=== PATIENT | female | born 1985 | race Caucasian/White ===

== ENCOUNTER 2016-10-28 14:42 | Emergency (ER) | payer OTHER, BC ==
[~2016-10-28] VITALS: Ht 161.3 cm; Wt 84.0 kg
[~2016-10-28 14:42] MED LIST: MTR600X PO; OXYC5TAB PO; PRENTAB26 PO
[2016-10-28 14:48] VITALS: TEMP 37.2; Ht 161.3 cm; Wt 84.0 kg
[2016-10-28] MEDS ORDERED: AMOX500C3 PO (14:57)
[2016-10-28] MEDS ORDERED: BCPILLS PO (14:57)
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
[2016-10-28 17:15] VITALS: BP 169/104; PULSE 92; O2SAT 100
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
== END 2016-10-28 17:17 | disposition home or self-care (01) ==
LOC: EDBD 14:42 → C.EDA 14:43
DX: G44.319 Acute post-traumatic headache, not intractable (principal); S16.1XXA Strain of muscle, fascia and tendon at neck level, initial encounter; S00.01XA Abrasion of scalp, initial encounter; V43.53XA Car driver injured in collision with pick-up truck in traffic accident, initial encounter; Z83.3 Family history of diabetes mellitus; Z82.49 Family history of ischemic heart disease and other diseases of the circulatory system; Z79.3 Long term (current) use of hormonal contraceptives

== ENCOUNTER 2018-08-31 10:34 | Inpatient (IN) ==
[2018-08-31] MEDS: LACTATED RINGER'S 1,000 ML IV SCH ×3 (11:40→16:25)
[2018-08-31] MEDS ORDERED: PENICILLIN G POTASSIUM 3 MU in DEXTROSE 5% 100 ML IV PRN (11:42)
[2018-08-31] MEDS ORDERED: OXYTOCIN 30 UNITS/500 ML BAG IV PRN ×3 (11:42→19:20)
[2018-08-31] MEDS ORDERED: LACTATED RINGER'S 1,000 ML IV PRN ×3 (11:42→16:07)
[2018-08-31] MEDS ORDERED: PENICILLIN G POTASSIUM 6 MU in DEXTROSE 5% 250 ML IV ONE (12:00)
[2018-08-31 12:05] LABS: Hemoglobin 12.2 g/dL (12.0-16.0); Mean Corpuscular Volume 85.9 fL (80-100); Mean Platelet Volume 9.9 fL (7.4-10.4); Platelet Count 213 K/uL (130-400); RDW Coefficient of Variation 13.1 % (11.5-14.5); RDW Standard Deviation 41.1 fL (36.4-46.3); Red Blood Count 4.19 M/uL (4.2-5.4); White Blood Count 9.93 K/uL (4.8-10.8)
[2018-08-31 12:17] LABS: Mean Corpuscular Hgb Conc 33.9 g/dL (32-36)
--- NOTE | 2018-08-31 12:32 | Labor Progress Brief Note ---
Date of Service August 31, 2018 Met Pt and reviewed PNC SROM confirmed via ferning and Nitrizine FHR; CAT1 Ctx ; minimal VE 3cm/50/-2 Pt is interested in discussed risk of uterine rapture, and maternal complications associated with , including but not limited to neurological damage but also . we have discussed the increase risk of uterine rapture if we have to start pitocin augmentation, which we may have to if she does not have spontaneous ctx on her own Pt has nodded her head in agreement and wishes to proceed with TOLAC Physical Exam 2 Vital Signs (Past 24 Hours): Last Vital Signs Temp 36.7 C 08/31/18 10:43 Pulse 109 H 08/31/18 10:47 Resp 18 08/31/18 10:43 BP 129/87 08/31/18 10:47
--- NOTE | 2018-08-31 12:51 | History and Physical Report ---
DATE OF ADMISSION: 08/31/2018 HISTORY OF PRESENT ILLNESS: The patient is a 32-year-old G4, P2, due date is 09/25/2018 making at 36 weeks and 3 days, who presented to labor and delivery with spontaneous rupture of membrane around 0900 hours today. Fluid was clear. This was confirmed by Nitrazine and ferning. The patient also had gross pooling on arrival. heart rate is category 1. Pelvic exam shows she is 3 cm, 50% effaced, and -1. Bedside ultrasound shows cephalic presentation. COURSE: Has been unremarkable. Blood type is A positive, antibody negative, rubella immune, GBS negative. PAST MEDICAL HISTORY: The patient had history of heterozygous for MTHFR gene mutation. PAST SURGICAL HISTORY: The patient had a section in March 2016 for breech presentation. Prior to that, she had a vaginal delivery in 2005. ALLERGIES: No known drug allergies. SOCIAL HISTORY: The patient denies tobacco, drug or alcohol use. PHYSICAL EXAMINATION: GENERAL: Well-developed, well-nourished white female in no acute distress. HEART: S1, S2, regular rhythm and rate. LUNGS: Clear to auscultation bilaterally. ABDOMEN: Gravid. Bedside ultrasound shows cephalic presentation. The patient was about 3 cm dilated. EXTREMITIES: No cyanosis, clubbing, edema. ASSESSMENT AND PLAN: A 32-year-old G4, P2 at 36 and 3, premature rupture of membranes. The patient has previous section and wishes to do a . We have discussed risks of including uterine rupture. We have discussed risks associated with infant including neurologic complications and to mother or to baby. The patient wishes to proceed with a trial of labor after . The patient is being admitted and anticipate the vaginal delivery.
--- NOTE | 2018-08-31 14:03 | Labor Progress Brief Note ---
Date of Service August 31, 2018 Pt doing well No ctx since admission No change in cervical exam discussed pitocin augmentation with risk of uterine rupture EFW 6-7lbs Plan Pitocin augmentation Physical Exam 2 Vital Signs (Past 24 Hours): Last Vital Signs Temp 37.1 C 08/31/18 12:59 Pulse 88 08/31/18 12:59 Resp 18 08/31/18 12:59 BP 115/74 08/31/18 12:59
[2018-08-31] MEDS ORDERED: BUPIVACAINE 0.25% 30 ML VIAL ONE (15:35)
[2018-08-31] MEDS ORDERED: ePHEDrine sulfate 50 MG/ML AMP ONE (15:36)
[2018-08-31] MEDS ORDERED: fentaNYL citrate 100 MCG/2 ML VIAL ONE (15:36)
[2018-08-31] MEDS ORDERED: fentaNYL 2MCG/ML ROPIV 1.25MG/ML 100 ML BAG EPI ONE (15:36)
--- NOTE | 2018-08-31 15:51 | Anesthesiology Consultation ---
Date of Service August 31, 2018 Assessment & Plan (1) Encounter for pre-operative examination: Chart Review Chart Review: Patient NOT seen in Pre Admission Testing and Acceptable Risk for Labor Epidural Consults Requested none ASA ASA2 Proposed Anesthesia Anesthesia Type: Labor Epidural and CSE Risk / Benefits Reviewed With: PT / POA / Parent / Guardian, Accepts Plan and Informed Consent Obtained NPO Date Last Intake of Fluids: 08/31/18 Time Last Intake of Fluids: 14:00 Date Last Intake of Solids: 08/31/18 Time Last Intake of Solids: 08:30 History Height/Weight Height: 5 ft 3 in Weight: 90.265 kg Allergies Allergy/AdvReac Type Severity Reaction Status Date / Time No Known Allergies Allergy Unverified 10/28/16 14:56 Medications Home Medications Medication Instructions Recorded Confirmed Last Taken vit-iron fum-folic ac PO 08/31/18 08/30/18 [ Vitamin] Active Medications Generic Name Dose Route Start Last Admin Trade Name Freq PRN Reason Stop Dose Admin Lactated Ringer's 1,000 mls @ 125 mls/hr 08/31/18 11:45 08/31/18 15:22 Lr IV 09/02/18 11:44 999 mls/hr .Q8H CHIP Administration Oxytocin 30 units in 500 mls @ 2 mls/hr 08/31/18 14:00 08/31/18 15:19 Pitocin IV 09/02/18 13:59 0.12 units/hr .Q24H PRN 2 mls/hr Labor Induction/Augmentation Titration Protocol 0.12 UNITS/HR Past Surgical History Surgical History History of delivery [place] teeth extracted Past Anesthesia History No Family Hx of Anesthesia Complications patient had nausea with C section History of PONV Yes Motion Sickness Screening History of Motion Sickness: No Social History Smoking Status: Former smoker Do You Dip or Chew Tobacco: No Hx Alcohol Use: No Hx Substance Use: No Exercise / Class Metabolic Activity II 4-5 Yardwork/Stairs/Walk up hill Review of Systems no chest pain or sob Physical Exam Vital Signs Last Vital Signs Temp 37.1 C 08/31/18 14:50 Pulse 101 H 08/31/18 15:49 Resp 18 08/31/18 14:50 BP 126/85 08/31/18 14:50 Pulse Ox 100 08/31/18 15:49 Constitutional + obese ENMT Mouth: + dental caries Neck normal visual inspection Respiratory normal respiratory effort Cardiovascular Rate/Rhythm: regular rate and regular rhythm Musculoskeletal Spine: no pain with cervical ROM Neurologic moves all extremities Psychiatric Orientation: alert and oriented x 3 Testing Laboratory Results 08/31/18 11:51 Blood Type A Positive 08/31/18 11:51 Antibody Screen NEGATIVE 08/31/18 11:51
[2018-08-31] MEDS ORDERED: ONDANSETRON INJ 2 MG/ML 2 ML VIAL IV PRN (16:07)
[2018-08-31] MEDS ORDERED: fentaNYL 2MCG/ML ROPIV 1.25MG/ML 100 ML BAG EPI PRN (16:07)
[2018-08-31] MEDS ORDERED: NALBUPHINE HCL INJ 10 MG/ML AMP IV PRN (16:07)
[2018-08-31] MEDS ORDERED: DiphenhydrAMINE HCL 50 MG/ML VIAL IV PRN (16:07)
[2018-08-31] MEDS ORDERED: ePHEDrine sulfate 50 MG/ML AMP IV PRN (16:07)
[2018-08-31] MEDS ORDERED: NALOXONE HCL 0.4 MG/1 ML VIAL/CARP IV PRN (16:07)
[2018-08-31] MEDS ORDERED: NALOXONE HCL 1 MG in SODIUM CHLORIDE 0.9% 1000ML 1,000 ML IV PRN (16:07)
[2018-08-31] MEDS ORDERED: METHYLERGONOVINE MALEATE 0.2 MG/ML AMP ONE (19:10)
[2018-08-31] MEDS ORDERED: ACETAMINOPHEN 325 MG TAB PO PRN (19:20)
[2018-08-31] MEDS ORDERED: ACETAMINOPHEN W/CODEINE #3 1 TAB PO PRN (19:20)
[2018-08-31] MEDS ORDERED: OXYCODONE/ACETAMINOPHEN 5mg/325mg TAB PO PRN (19:20)
[2018-08-31] MEDS ORDERED: SUPERCREAM 0.870% 15 GM JAR EXT PRN (19:20)
[2018-08-31] MEDS ORDERED: BISACODYL 10 MG SUPP PR PRN (19:20)
[2018-08-31] MEDS ORDERED: METHYLERGONOVINE MALEATE 0.2 MG/ML AMP IM ONE (19:20)
[2018-08-31] MEDS ORDERED: HYDROCORTISONE ACETATE 25 MG SUPP PR PRN (19:20)
[2018-08-31] MEDS ORDERED: miSOPROStol 200 MCG TAB PR ONE (19:20)
[2018-08-31] MEDS ORDERED: BENZOCAINE 20% AER SPR 82.5 GM CAN EXT PRN (19:20)
[2018-08-31] MEDS ORDERED: DIPHTHERIA/TETANUS/PERTUSSIS 0.5 ML SYR/VIAL IM ONE (19:20)
[2018-08-31] MEDS ORDERED: KEFZOL SPECIAL PROCEDURE STOCK 1 GM ADDVIAL IV ONE (19:23)
[2018-08-31] MEDS ORDERED: miSOPROStol 200 MCG TAB ONE (19:23)
[2018-08-31] MEDS ORDERED: CEFAZOLIN 2000MG 2,000 MG/15 ML SYR IV ONE (20:00)
[2018-08-31] MEDS: OXYTOCIN 20 UNITS in LACTATED RINGER'S 1,000 ML IV SCH (20:05)
--- NOTE | 2018-08-31 20:18 | Anesthesia Procedure Note ---
Date of Service August 31, 2018 Anesthesia Post Epidural Note Vital Signs Vital Signs: Temp Pulse Resp BP Pulse Ox 08/31/18 20:05 109 H 119/89 08/31/18 19:51 108 H 121/88 08/31/18 19:35 110 H 119/87 08/31/18 19:20 114 H 118/71 08/31/18 19:12 105 H 122/69 08/31/18 19:04 109 H 99 08/31/18 18:59 113 H 100 08/31/18 18:57 102 H 111/70 08/31/18 18:54 109 H 99 08/31/18 18:49 117 H 99 08/31/18 18:44 114 H 100 08/31/18 18:42 88 104/49 L 08/31/18 18:39 127 H 100 08/31/18 18:34 125 H 100 08/31/18 18:29 112 H 99 08/31/18 18:27 113 H 126/81 08/31/18 18:24 116 H 100 08/31/18 18:19 110 H 100 08/31/18 18:14 124 H 100 08/31/18 18:13 111 H 159/80 H 08/31/18 18:09 106 H 100 08/31/18 18:04 103 H 100 08/31/18 18:00 36.8 C 18 08/31/18 17:59 109 H 100 08/31/18 17:58 101 H 126/75 08/31/18 17:54 114 H 98 08/31/18 17:49 109 H 100 08/31/18 17:44 108 H 100 08/31/18 17:43 103 H 117/74 08/31/18 17:39 100 H 100 08/31/18 17:34 101 H 100 08/31/18 17:30 18 08/31/18 17:29 115 H 99 08/31/18 17:27 112 H 108/65 08/31/18 17:24 114 H 99 08/31/18 17:19 111 H 100 08/31/18 17:14 101 H 100 08/31/18 17:13 100 H 113/73 08/31/18 17:09 113 H 100 08/31/18 17:04 91 H 100 08/31/18 17:00 18 08/31/18 16:59 89 100 01/04/19 16:58 108 H 110/74 08/31/18 16:54 95 H 100 08/31/18 16:49 107 H 100 08/31/18 16:44 96 H 100 08/31/18 16:41 117 H 123/78 08/31/18 16:39 105 H 100 08/31/18 16:37 105 H 18 129/78 08/31/18 16:34 115 H 100 08/31/18 16:31 112 H 127/61 08/31/18 16:30 18 08/31/18 16:29 114 H 100 08/31/18 16:28 107 H 104/60 08/31/18 16:26 112 H 96/56 L 08/31/18 16:25 108 H 18 107/57 L 08/31/18 16:24 108 H 100 08/31/18 16:23 114 H 111/56 L 08/31/18 16:21 108 H 129/70 08/31/18 16:20 18 08/31/18 16:19 124 H 100 08/31/18 16:18 103 H 123/65 08/31/18 16:17 110 H 94/55 L 08/31/18 16:15 98 H 18 95/50 L 08/31/18 16:14 99 H 100 08/31/18 16:13 108 H 97/52 L 08/31/18 16:11 101 H 18 102/59 L 08/31/18 16:09 107 H 100 08/31/18 16:07 101 H 129/87 08/31/18 16:04 102 H 100 08/31/18 15:59 108 H 100 08/31/18 15:54 99 H 100 08/31/18 15:49 101 H 100 08/31/18 14:50 37.1 C 87 18 126/85 08/31/18 12:59 37.1 C 88 18 115/74 08/31/18 11:00 37.1 C 18 08/31/18 10:47 109 H 129/87 08/31/18 10:43 36.7 C 18 Notes Mental Status: alert / awake / arousable and participated in evaluation Nausea / Vomiting: adequately controlled Pain: adequately controlled Airway Patency, RR, SpO2: stable & adequate BP & HR: stable & adequate Hydration State: stable & adequate Neuraxial Anesthesia: was administered and sensory block is resolving Anesthetic Complications: no major complications apparent and Pt Satisfied with anesthetic care Epidural: Removed without complications and With tip intact
[2018-08-31] MEDS: CEFAZOLIN 1000MG 1,000 MG/7.5 ML SYR IV SCH (23:38)
[2018-09-01] MEDS: IBUPROFEN 600 MG TAB PO PRN ×3 (03:17→19:48)
[2018-09-01] MEDS: CEFAZOLIN 1000MG 1,000 MG/7.5 ML SYR IV SCH ×5 (03:54→19:47)
[2018-09-01] MEDS: OXYTOCIN 20 UNITS in LACTATED RINGER'S 1,000 ML IV SCH (03:59)
[2018-09-01 06:42] LABS: Hematocrit (blood only) 34.4 % (37-47); Hemoglobin 11.4 g/dL (12.0-16.0); Mean Corpuscular Hgb Conc 33.1 g/dL (32-36); Mean Corpuscular Volume 85.8 fL (80-100); Platelet Count 197 K/uL (130-400); RDW Standard Deviation 40.8 fL (36.4-46.3); Red Blood Count 4.01 M/uL (4.2-5.4); White Blood Count 10.37 K/uL (4.8-10.8)
--- NOTE | 2018-09-01 10:17 | Obstetrical Progress Note ---
Date of Service September 01, 2018 Subjective Patient is seen and examined. She feels well, no complaints. Ambulating without dizziness Voiding without difficulty Tolerating regular diet with out N&V Bleeding is minimal No fever/ chills/ CP/ SOB/ N&V/ Leg pain Breast feeding without problems On IV AB for 24 hours for manual removal of placenta Vital Signs Temp Pulse Pulse Resp BP BP Pulse Ox 09/01/18 07:50 36.7 C 91 H 20 124/85 09/01/18 04:00 37.3 C 111 H 16 114/79 99 08/31/18 23:50 37.2 C 102 H 14 116/80 98 08/31/18 21:40 37.7 C H 113 H 16 118/81 98 08/31/18 21:20 111 H 130/67 08/31/18 20:50 117 H 133/90 08/31/18 20:21 115 H 137/73 08/31/18 20:05 109 H 119/89 08/31/18 19:51 108 H 121/88 08/31/18 19:35 110 H 119/87 08/31/18 19:20 114 H 118/71 08/31/18 19:12 105 H 122/69 08/31/18 19:04 109 H 99 08/31/18 18:59 113 H 100 08/31/18 18:57 102 H 111/70 08/31/18 18:54 109 H 99 08/31/18 18:49 117 H 99 08/31/18 18:44 114 H 100 08/31/18 18:42 88 104/49 L 08/31/18 18:39 127 H 100 08/31/18 18:34 125 H 100 08/31/18 18:29 112 H 99 08/31/18 18:27 113 H 126/81 08/31/18 18:24 116 H 100 08/31/18 18:19 110 H 100 08/31/18 18:14 124 H 100 08/31/18 18:13 111 H 159/80 H 08/31/18 18:09 106 H 100 08/31/18 18:04 103 H 100 08/31/18 18:00 36.8 C 18 08/31/18 17:59 109 H 100 08/31/18 17:58 101 H 126/75 08/31/18 17:54 114 H 98 08/31/18 17:49 109 H 100 08/31/18 17:44 108 H 100 08/31/18 17:43 103 H 117/74 08/31/18 17:39 100 H 100 08/31/18 17:34 101 H 100 08/31/18 17:30 18 08/31/18 17:29 115 H 99 08/31/18 17:27 112 H 108/65 08/31/18 17:24 114 H 99 08/31/18 17:19 111 H 100 08/31/18 17:14 101 H 100 08/31/18 17:13 100 H 113/73 08/31/18 17:09 113 H 100 08/31/18 17:04 91 H 100 08/31/18 17:00 18 08/31/18 16:59 89 100 08/31/18 16:58 108 H 110/74 08/31/18 16:54 95 H 100 08/31/18 16:49 107 H 100 08/31/18 16:44 96 H 100 08/31/18 16:41 117 H 123/78 08/31/18 16:39 105 H 100 08/31/18 16:37 105 H 18 129/78 08/31/18 16:34 115 H 100 08/31/18 16:31 112 H 127/61 08/31/18 16:30 18 08/31/18 16:29 114 H 100 08/31/18 16:28 107 H 104/60 08/31/18 16:26 112 H 96/56 L 08/31/18 16:25 108 H 18 107/57 L 08/31/18 16:24 108 H 100 08/31/18 16:23 114 H 111/56 L 08/31/18 16:21 108 H 129/70 08/31/18 16:20 18 08/31/18 16:19 124 H 100 08/31/18 16:18 103 H 123/65 08/31/18 16:17 110 H 94/55 L 08/31/18 16:15 98 H 18 95/50 L 08/31/18 16:14 99 H 100 08/31/18 16:13 108 H 97/52 L 08/31/18 16:11 101 H 18 102/59 L 08/31/18 16:09 107 H 100 08/31/18 16:07 101 H 129/87 08/31/18 16:04 102 H 100 08/31/18 15:59 108 H 100 08/31/18 15:54 99 H 100 08/31/18 15:49 101 H 100 08/31/18 14:50 37.1 C 87 18 126/85 08/31/18 12:59 37.1 C 88 18 115/74 08/31/18 11:00 37.1 C 18 08/31/18 10:47 109 H 129/87 08/31/18 10:43 36.7 C 18 Intake and Output 08/31/18 09/01/18 09/01/18 22:59 06:59 14:59 Intake Total 2038.867 / 2038.867 985.417 / 985.417 Output Total 1000 / 1000 Balance 1038.867 / 1038.867 985.417 / 985.417 Intake: IV 2038.867 / 2038.867 985.417 / 985.417 Lr 1,000 ml @ 125 mls/hr IV . 1804.75 / 1804.75 Q8H CHIP Rx#:[id number] Pitocin 20 Units In Lr 1,000 ml 985.417 / 985.417 @ 125 mls/hr IV .Q8H1M CHIP Rx# :[id number] PITOCIN 30 units In 500 ml @ 20 234.117 / 234.117 UNITS/HR 333.333 mls/hr IV . Q1H30M PRN Rx#:[id number] Output: Urine 300 / 300 Urine Amount (Catheter) 700 / 700 Straight 700 / 700 Other: Weight 90.265 kg PE: General: Alert, orientedx3, NAD Abd: soft, NT, fundus firm, below Umbilicus Perineum intact, Lochia rubra minimal Ext; NT, no edema AP: 32 yo s/p , ppd# 1 VSS Afebrile doing well Continue routine care All questions were answered D/C home tomorrow Physical Exam 2 Vital Signs (Past 24 Hours): Last Vital Signs Temp 36.7 C 09/01/18 07:50 Pulse 91 H 09/01/18 07:50 Resp 20 09/01/18 07:50 BP 124/85 09/01/18 07:50 Pulse Ox 99 09/01/18 04:00
[2018-09-01] MEDS: DOCUSATE SODIUM 100 MG CAP PO SCH ×2 (12:09→19:47)
[2018-09-01] MEDS: PRENATAL VITAMIN 1 TAB PO SCH (12:10)
[2018-09-01] MEDS: FERROUS SULFATE 325 MG TAB PO SCH (12:10)
[2018-09-01] MEDS ORDERED: BISACODYL 5 MG TABEC PO SCH (20:00)
[2018-09-02 06:41] LABS: Basophils # (auto) 0.01 K/uL (0-0.2); Basophils % (auto) 0.1 %; Eosinophils # (auto) 0.22 K/uL (0-0.5); Eosinophils % (auto) 2.3 %; Hematocrit (blood only) 34.3 % (37-47); Hemoglobin 11.2 g/dL (12.0-16.0); Immature Granulocytes # (auto) 0.02 K/uL (0.00-0.02); Immature Granulocytes % (auto) 0.2 %; Lymphocytes # (auto) 2.77 K/uL (1.2-3.4); Lymphocytes % (auto) 28.7 %; Mean Corpuscular Hgb Conc 32.7 g/dL (32-36); Mean Corpuscular Volume 87.7 fL (80-100); Mean Platelet Volume 9.7 fL (7.4-10.4); Monocytes # (auto) 0.86 K/uL (0.11-0.59); Monocytes % (auto) 8.9 %; Neutrophils # (auto) 5.78 K/uL (1.4-6.5); Neutrophils % (auto) 59.8 %; Platelet Count 206 K/uL (130-400); RDW Coefficient of Variation 13.3 % (11.5-14.5); RDW Standard Deviation 42.6 fL (36.4-46.3); Red Blood Count 3.91 M/uL (4.2-5.4); White Blood Count 9.66 K/uL (4.8-10.8)
[2018-09-02] MEDS: IBUPROFEN 600 MG TAB PO PRN (07:34)
[2018-09-02] MEDS: PRENATAL VITAMIN 1 TAB PO SCH (07:34)
[2018-09-02] MEDS: FERROUS SULFATE 325 MG TAB PO SCH (07:35)
--- NOTE | 2018-09-02 09:35 | Obstetrical Progress Note ---
Date of Service September 02, 2018 Subjective Patient is seen and examined. She feels well, no complaints. Ambulating without dizziness Voiding without difficulty Tolerating regular diet with out N&V Bleeding is minimal No fever/ chills/ CP/ SOB/ N&V/ Leg pain Breast feeding without problems Discussed contraception, desires to start POP Vital Signs Temp Pulse Resp BP Pulse Ox 09/02/18 00:55 36.3 C L 90 18 115/76 09/01/18 15:00 37 C 94 H 18 113/78 98 09/01/18 12:40 36.7 C 94 H 20 115/82 09/02/18 Range/Units 06:09 WBC 9.66 (4.8-10.8) K/uL RBC 3.91 L (4.2-5.4) M/uL Hgb 11.2 L (12.0-16.0) g/dL Hct 34.3 L (37-47) % MCV 87.7 (80-100) fL MCH 28.6 (25-34) pg MCHC 32.7 (32-36) g/dL RDW Std Deviation 42.6 (36.4-46.3) fL RDW Coeff of Sandi 13.3 (11.5-14.5) % Plt Count 206 (130-400) K/uL MPV 9.7 (7.4-10.4) fL Immature Gran % (Auto) 0.2 % Neut % (Auto) 59.8 % Lymph % (Auto) 28.7 % [place] % (Auto) 8.9 % Eos % (Auto) 2.3 % Baso % (Auto) 0.1 % Immature Gran # (Auto) 0.02 (0.00-0.02) K/uL Neut # (Auto) 5.78 (1.4-6.5) K/uL Lymph # (Auto) 2.77 (1.2-3.4) K/uL [place] # (Auto) 0.86 H (0.11-0.59) K/uL Eos # (Auto) 0.22 (0-0.5) K/uL Baso # (Auto) 0.01 (0-0.2) K/uL PE: General: Alert, orientedx3, NAD Abd: soft, NT, fundus firm, below Umbilicus Perineum intact, Lochia rubra minimal Ext; NT, no edema AP: 32 yo s/p , ppd# 2 VSS Afebrile doing well Continue routine care All questions were answered D/C home , f/u in office Physical Exam 2 Vital Signs (Past 24 Hours): Last Vital Signs Temp 36.3 C L 09/02/18 00:55 Pulse 90 09/02/18 00:55 Resp 18 09/02/18 00:55 BP 115/76 09/02/18 00:55 Pulse Ox 98 09/01/18 15:00
--- NOTE | 2018-09-03 07:19 | Delivery Summary ---
DATE OF OPERATION: 08/31/2018 The patient delivered a live infant female in the left occiput anterior presentation. There was nuchal cord which was easily reduced. Infant was delivered and placed on mother's abdomen and cord clamped at 1 minute. Infant was handed over to the waiting pediatric team. Apgars 8 and 9. Weight is pending. The cord blood was obtained. The umbilical cord broke after the infant was delivered. Placenta was therefore manually extracted from the uterus. Ultrasound was placed on mother's abdomen after manual extraction of placenta and Banjo curette used to curettage the uterus. On bedside ultrasound, there did not appear to be anymore retained products in the uterus. There was good hemostasis post removal. Inspection of the perineum showed bilateral periurethral tear which was repaired with 3-0 Vicryl. Bladder was catheterized and 100 mL of clear urine was obtained. ESTIMATED BLOOD LOSS: 600 mL. Baby and mother doing well in recovery. All instruments are removed from the vagina and accounted for x2. I attest to the content of the Intraoperative Record and any orders documented therein. Any exception s are noted below.
== END 2018-09-02 10:10 | disposition home or self-care (01) | DRG 807 ==
LOC: OPB 10:34 → 4S1 10:38 → 4S2 21:54